=== PATIENT | female | born 1960 | race Caucasian/White ===

== ENCOUNTER 2023-01-27 09:58 | Emergency (ER) | payer SELFPAY ==
[~2023-01-27] VITALS: Ht 165.1 cm; Wt 81.6 kg
[2023-01-27 10:30] VITALS: BP 149/100; TEMP 98; O2SAT 100
[2023-01-27] MEDS ORDERED: IBUPROFEN 600 MG TABLET ONE ×2 (12:34→12:38)
[2023-01-27] MEDS: IBUPROFEN 600 MG TABLET PO ONE (12:40)
[2023-01-27] MEDS: LIDOCAINE 1% INJ 50 ML MDV IJ ONE (13:31)
[2023-01-27] MEDS ORDERED: LIDOCAINE 1% INJ 50 ML MDV IJ ONE (13:32)
== END 2023-01-27 15:08 | disposition home or self-care (01) ==
LOC: ER 10:00
DX: S61.211A Laceration without foreign body of left index finger without damage to nail, initial encounter (principal); W45.8XXA Other foreign body or object entering through skin, initial encounter; Y93.89 Activity, other specified; Y92.89 Other specified places as the place of occurrence of the external cause; Y99.8 Other external cause status
CPT/HCPCS: 11760; 99284; 73140; J3490

== ENCOUNTER 2024-01-25 15:38 | Emergency (ER) | payer MEDICAID ==
[~2024-01-25] VITALS: Ht 170.2 cm; Wt 80.7 kg
[2024-01-25 15:53] VITALS: BP 163/89; TEMP 97.9; O2SAT 95
[2024-01-25] MEDS ORDERED: VALS80TA2 PO (16:06)
[2024-01-25] MEDS ORDERED: BISO5TAB20 PO (16:06)
== END 2024-01-25 16:27 | disposition home or self-care (01) ==
LOC: ER 15:51
DX: E78.5 Hyperlipidemia, unspecified (principal); I10 Essential (primary) hypertension; Z76.0 Encounter for issue of repeat prescription; Z79.899 Other long term (current) drug therapy